=== PATIENT | female | born 1955 | race Caucasian/White ===

== ENCOUNTER 2020-06-18 05:47 | Outpatient (CLI) | payer SELFPAY ==
[~2020-06-18] VITALS: Ht 162 cm; Wt 68.0 kg
[2020-06-18] MEDS ORDERED: CITA20TA9 PO (14:14)
[2020-06-18] MEDS ORDERED: DONE5TAB30 PO (14:14)
[2020-06-18] MEDS ORDERED: LORA-404 PO (14:14)
[2020-06-18] MEDS ORDERED: MEMA10TA57 PO (14:14)
[2020-06-18] MEDS ORDERED: ASPI-999 PO (14:14)
[2020-06-18] MEDS ORDERED: FOLI0.4T2 PO (14:14)
== END 2020-06-18 14:53 | disposition home or self-care (01) ==
LOC: PREOP 05:47
PROVIDERS: ATTEND Specialist
DX: Z01.818 Encounter for other preprocedural examination (principal)

== ENCOUNTER 2020-06-20 09:51 | Day surgery (SDC) | payer BC, MEDICAID ==
[~2020-06-20] VITALS: Ht 162 cm; Wt 68.0 kg
[~2020-06-20 09:51] MED LIST: ASPI-999 PO; CITA20TA9 PO; DONE5TAB30 PO; FOLI0.4T2 PO; LORA-404 PO; MEMA10TA57 PO
[2020-06-20] MEDS: TETRACAINE 0.5% OPHTH SOLN 4 ML BTL (SINGLE DOSE ONLY) OU PRN ×4 (10:13→10:39)
[2020-06-20] MEDS ORDERED: TIMOLOL MALEATE 0.5% 5 ML (TIMOPTIC) BTL OU PRN (10:15)
[2020-06-20] MEDS ORDERED: MOXIFLOXACIN OPHTH SOLN 5 MG/ML 0.3 ML SYRINGE OP ONE (10:15)
[2020-06-20] MEDS ORDERED: POVIDONE (BETADINE) OPHTH SOLN 5% 30 ML OP ONE (10:15)
[2020-06-20] MEDS ORDERED: LIDOCAINE PF 1% 2 ML VIAL IR PRN (10:15)
[2020-06-20 10:16] VITALS: BP 115/57
[2020-06-20] MEDS: CYCLOPENTOLATE 1% (CYCLOGYL) 2 ML DROPS OP SCH ×3 (10:27→10:39)
[2020-06-20] MEDS: PHENYLEPHRINE 10% OPHTH (NEO-SYN) 5 ML BTL OU SCH ×3 (10:27→10:39)
--- NOTE | 2020-06-20 10:50 | Ophthalmologist Pre-Op Note ---
Pre-Operative Progress Note H&P Reviewed The H&P was reviewed, patient examined and no changes noted. Date H&P Reviewed: Jun 20, 2020 Time H&P Reviewed: 10:50 Pre-Op Dx Cataract, Right Eye REUBEN GARCIA MD Jun 20, 2020 10:50
[2020-06-20] MEDS ORDERED: MIDAZOLAM 2 MG/2 ML (VERSED) VIAL ONE (10:56)
--- NOTE | 2020-06-20 11:19 | Ophthalmology Operative Report ---
Cataract removal/placement IOL PREOPERATIVE DIAGNOSIS: Cataract Right Eye POSTOPERATIVE DIAGNOSIS: Cataract Right Eye PROCEDURE: Cataract removal and placement of posterior chamber implant, right eye SURGEON: Heath Garcia ANESTHESIA: Topical with sedation COMPLICATIONS: None ESTIMATED BLOOD LOSS: Minimal DESCRIPTION OF PROCEDURE: After proper informed consent was obtained, the patient, a 65 female, was taken to the Operating Room and the right eye was anesthetized with tetracaine. The right eye was then prepped and draped in the usual manner. A wire lid speculum was placed. A paracentesis was made at the left hand position. Preservative free lidocaine was injected into the anterior chamber followed by viscoelastic. A clear corneal incision was made in the temporal position. A capsulorrhexis was preformed and the central nuclear and cortical material were removed. The posterior capsule was polished and Tank 23.5 AU00T0 IOL was placed into the capsular bag. The residual viscoelastic was aspirated and balanced saline solution was injected into the anterior chamber. Moxifloxacin was injected into the anterior chamber. The wound was checked and found to be water tight. The patient tolerated the procedure well without complications. HEATH GARCIA MD Jun 20, 2020 11:19
[2020-06-20 11:30] VITALS: BP 153/88
[2020-06-20] MEDS ORDERED: acetaZOLAMIDE ER 500 MG CAP (DIAMOX SEQUELS) PO ONE (11:30)
--- NOTE | 2020-06-20 13:08 | Anesthesia-General Post-Op ---
MAC Patient Condition Mental Status/LOC: Same as Preop Cardiovascular: Satisfactory Nausea/Vomiting: Absent Respiratory: Satisfactory Pain: Controlled Complications: Absent Post Op Complications Complications None Follow Up Care/Instructions Patient Instructions None needed. Anesthesiology Discharge Order Discharge Order Patient is doing well, no complaints, stable vital signs, no apparent adverse anesthesia problems. No complications reported per nursing. JERILYN GAN CRNA Jun 20, 2020 13:08
== END 2020-06-20 11:30 | disposition home or self-care (01) ==
LOC: SDC 09:51
PROVIDERS: ATTEND Specialist
DX: H25.11 Age-related nuclear cataract, right eye (principal); F32.9 Major depressive disorder, single episode, unspecified; M19.90 Unspecified osteoarthritis, unspecified site; Z79.899 Other long term (current) drug therapy

== ENCOUNTER 2020-06-27 11:00 | Day surgery (SDC) | payer MEDICARE, MEDICAID ==
[~2020-06-27] VITALS: Ht 160 cm; Wt 68.2 kg
[2020-06-27] MEDS ORDERED: LIDOCAINE PF 1% 2 ML VIAL IR PRN (11:15)
[2020-06-27] MEDS ORDERED: MOXIFLOXACIN OPHTH SOLN 5 MG/ML 0.3 ML SYRINGE OP ONE (11:15)
[2020-06-27] MEDS ORDERED: TIMOLOL MALEATE 0.5% 5 ML (TIMOPTIC) BTL OU PRN (11:15)
[2020-06-27] MEDS ORDERED: POVIDONE (BETADINE) OPHTH SOLN 5% 30 ML OP ONE (11:15)
[2020-06-27] MEDS: TETRACAINE 0.5% OPHTH SOLN 4 ML BTL (SINGLE DOSE ONLY) OU PRN ×4 (11:17→11:35)
[2020-06-27] MEDS: PHENYLEPHRINE 10% OPHTH (NEO-SYN) 5 ML BTL OU SCH ×3 (11:24→11:35)
[2020-06-27] MEDS: CYCLOPENTOLATE 1% (CYCLOGYL) 2 ML DROPS OP SCH ×3 (11:24→11:35)
[2020-06-27 11:26] VITALS: BP 107/85
--- NOTE | 2020-06-27 11:45 | Ophthalmologist Pre-Op Note ---
Pre-Operative Progress Note H&P Reviewed The H&P was reviewed, patient examined and no changes noted. Date H&P Reviewed: Jun 27, 2020 Time H&P Reviewed: 11:45 Pre-Op Dx Cataract, Left Eye REUBEN GARCIA MD Jun 27, 2020 11:45
--- NOTE | 2020-06-27 12:06 | Ophthalmology Operative Report ---
Cataract removal/placement IOL PREOPERATIVE DIAGNOSIS: Cataract Left Eye POSTOPERATIVE DIAGNOSIS: Cataract Left Eye PROCEDURE: Cataract removal and placement of posterior chamber implant, left eye SURGEON: Heath Garcia ANESTHESIA: Topical with sedation COMPLICATIONS: None ESTIMATED BLOOD LOSS: Minimal DESCRIPTION OF PROCEDURE: After proper informed consent was obtained, the patient, a 65 female, was taken to the Operating Room and the left eye was anesthetized with tetracaine. The left eye was then prepped and draped in the usual manner. A wire lid speculum was placed. A paracentesis was made at the left hand position. Preservative free lidocaine was injected into the anterior chamber followed by viscoelastic. A clear corneal incision was made in the temporal position. A capsulorrhexis was preformed and the central nuclear and cortical material were removed. The posterior capsule was polished and an Tank 23.5 AU00T0 was placed into the capsular bag. The residual viscoelastic was aspirated and balanced saline solution was injected into the anterior chamber. Moxifloxacin was injected into the anterior chamber. The wound was checked and found to be water tight. The patient tolerated the procedure well without complications. HEATH GARCIA MD Jun 27, 2020 12:06
[2020-06-27 12:14] VITALS: BP 112/78
[2020-06-27] MEDS ORDERED: acetaZOLAMIDE ER 500 MG CAP (DIAMOX SEQUELS) PO ONE (12:30)
--- NOTE | 2020-06-27 14:28 | Anesthesia-General Post-Op ---
MAC Patient Condition Mental Status/LOC: Same as Preop Cardiovascular: Satisfactory Nausea/Vomiting: Absent Respiratory: Satisfactory Pain: Controlled Complications: Absent Post Op Complications Complications None Follow Up Care/Instructions Patient Instructions None needed. Anesthesiology Discharge Order Discharge Order Patient was seen this morning after the procedure and she was doing well, no complaints, stable vital signs, no apparent adverse anesthesia problems. NADIA ROJAS DO Jun 27, 2020 14:28
== END 2020-06-27 12:17 ==
LOC: SDC 11:00
PROVIDERS: ATTEND Specialist
DX: H25.12 Age-related nuclear cataract, left eye (principal); F32.9 Major depressive disorder, single episode, unspecified; F03.90 Unspecified dementia, unspecified severity, without behavioral disturbance, psychotic disturbance, mood disturbance, and anxiety; F17.210 Nicotine dependence, cigarettes, uncomplicated; Z79.899 Other long term (current) drug therapy
CPT/HCPCS: 66984; V2632

== ENCOUNTER 2023-06-07 05:39 | Outpatient (CLI) | payer MEDICARE, MEDICAID ==
[~2023-06-07] VITALS: Ht 162.6 cm; Wt 76.8 kg
[~2023-06-07 05:39] MED LIST changes: -FOLI0.4T2 PO; +FOLI0.4T6 PO
[2023-06-07] MEDS ORDERED: CHOL400T3 PO (14:10)
[2023-06-07] MEDS ORDERED: MIRT7.5T8 PO (14:10)
[2023-06-07] MEDS ORDERED: VENL150C98 PO (14:10)
[2023-06-07] MEDS ORDERED: POTA99CA PO (14:10)
[2023-06-07] MEDS ORDERED: MEMA10TA57 PO (14:10)
[2023-06-07] MEDS ORDERED: CYAN1TAB26 PO (14:10)
[2023-06-07] MEDS ORDERED: CYCL1DRO OP (14:10)
== END 2023-06-07 14:15 | disposition home or self-care (01) ==
LOC: PREOP 05:39
PROVIDERS: ATTEND Obstetrics & Gynecology
DX: Z01.818 Encounter for other preprocedural examination (principal)

== ENCOUNTER 2023-06-13 10:30 | Day surgery (SDC) | payer MEDICARE, MEDICAID ==
[2023-06-13] VITALS (13 sets, daily range): BP systolic 100–125; BP diastolic 60–83
[~2023-06-13] VITALS: Ht 162.6 cm; Wt 76.8 kg
[~2023-06-13 10:30] MED LIST changes: +CHOL400T3 PO; +CYAN1TAB26 PO; +CYCL1DRO OP; +MIRT7.5T8 PO; +POTA99CA PO; +VENL150C98 PO
[2023-06-13] MEDS ORDERED: ceFAZolin INJECTION 2,000 MG in NS (IVPB) 50 ML 50 ML IV ONE (11:00)
[2023-06-13] MEDS: LACTATED RINGERS 1,000 ML 1,000 ML IV PRN ×2 (11:00→13:13)
[2023-06-13] MEDS ORDERED: ONDANSETRON INJECTION 4 MG/2 ML (SDV) ONE (11:11)
[2023-06-13] MEDS ORDERED: LIDOCAINE PF 2% 5 ML VIAL ONE (11:11)
[2023-06-13] MEDS ORDERED: dexAMETHasone INJ 10 MG/ML 1 ML VIAL ONE (11:11)
[2023-06-13] MEDS ORDERED: SEVOFLURANE (ULTANE) 15 ML INHAL SOLN ONE (11:11)
[2023-06-13] MEDS ORDERED: fentaNYL INJECTION 100 MCG/2 ML VIAL ONE (11:11)
[2023-06-13] MEDS ORDERED: proPOfol INJECTION 200 MG/20 ML VIAL IV ONE (11:11)
[2023-06-13] MEDS ORDERED: MIDAZOLAM INJ 2 MG/2 ML VIAL ONE (11:12)
[2023-06-13] MEDS ORDERED: LIDOCAINE/EPI 1%-1:200,000 (XYLOCAINE) 30 ML VIAL ONE (11:28)
--- NOTE | 2023-06-13 11:36 | Progress Note-Pre Operative ---
Pre-Operative Progress Note Date H&P Reviewed: Jun 13, 2023 Time H&P Reviewed: 11:35 History & Physical: H&P Reviewed, Patient Examed, No changes noted Changes from last HP excision of condyloma near anus Pre-Operative Diagnosis: excision of condyloma near anus all other indicated procedures NEREIDA VILLAVICENCIO DO Jun 13, 2023 11:36
--- NOTE | 2023-06-13 11:37 | Progress Note-Pre Operative ---
Pre-Operative Progress Note Date H&P Reviewed: Jun 13, 2023 Time H&P Reviewed: 11:35 History & Physical: H&P Reviewed, Patient Examed, No changes noted Pre-Operative Diagnosis: Condyloma Accuminata Plan for wide local excision DEYVI GARCIA DO Jun 13, 2023 11:37
[2023-06-13] MEDS ORDERED: LIDOCAINE/EPI 1%-1:200,000 (XYLOCAINE) 30 ML VIAL INJ ONE (12:21)
[2023-06-13] MEDS ORDERED: MUPIROCIN 2% OINTMENT 22 GM TUBE ONE (12:26)
[2023-06-13] MEDS ORDERED: CEPH500T PO (12:50)
[2023-06-13] MEDS ORDERED: OXYC1TAB87 PO (12:50)
[2023-06-13] MEDS ORDERED: IBUP-1773 PO (12:50)
[2023-06-13] MEDS ORDERED: MUPIROCIN 2% OINTMENT 22 GM TUBE TOP ONE (12:51)
[2023-06-13] MEDS ORDERED: ESMOLOL INJ 100 MG/10 ML VIAL ONE (12:53)
--- NOTE | 2023-06-13 12:53 | Discharge Inst-Simple/Standard ---
Discharge Inst-Standard Reconcile Patient Problems Problems Reviewed?: Yes Discharge Medications New, Converted or Re-Newed RX: Transmitted to Pharmacy Patient Instructions/Follow Up Plan of Care/Instructions/FU: Keep area clean and dry continue to use bactroban after each toilet use. F/u On 06/16/23 Activity as Tolerated: Yes Discharge Diet: Regular Diet Return to The Hospital For: increased pain, temperature or bleeding. DEYVI GARCIA DO Jun 13, 2023 12:52
[2023-06-13] MEDS ORDERED: BACI28.431 TP (12:54)
--- NOTE | 2023-06-13 13:01 | OB/GYN Operative Report ---
Operative Report Date of Procedure:Jun 13, 2023 Preoperative Diagnosis: Condyloma acuminata on the left vulva perianal area Postoperative Diagnosis:Same Name of the Procedure: Excision of condyloma acuminata with fulguration Surgeon: Deyvi Garcia DO Concurrent with Dr. Edwards Training And Quality Manager(s): [none] Anesthesia:General LMA Indications for Procedure:Condyloma acuminata of the left vulva and perianal area] Findings of the Procedure: Large 3 x 4 cm condyloma acuminata on the left vulva extending to the perineal and perianal area Complications: None Disposition:Counts correct x2 patient stable to PACU Description of procedure: Informed consent was obtained and signed patient was taken to OR [facility]. 1 placed under general LMA anesthesia placed in the dorsolithotomy position prepped and draped usual sterile fashion. A timeout was performed. Dr. Edwards was present in the room and after examining the patient it was decided to do an excision of the condyloma on the perianal to perineal area. Dr. Edwards was going to do this section of the procedure. She also had a 3 x 4 cm lesion on the left labia majora that extended into the labia minora. The labia minora lesion was flat so it was decided to fulgurate that and excise the labia majora lesion. Dr. Edwards dictated his portion of the procedure and once that was done we then injected the area with 1% lidocaine with epi. Using a 15 blade scalpel we made an excision around the condyloma acuminata and removed it with a Bovie cautery. Once this was removed and was sent to pathology for further analysis. The flat areas of condyloma were fulgurated using the Bovie cautery. The subcutaneous layer was cauterized for hemostasis and then reapproximated using 2-0 Vicryl in a running fashion for 2 layers. The skin was reapproximate using 3-0 Vicryl in a running fashion. The area was then covered with Bactroban and the patient was taken out of the [facility] and taken to PACU in stable condition. The condyloma lesion was sent to pathology along with Dr. Edwards's biopsy for further analysis. All my counts were correct x2 the estimated blood loss was minimal fluids were 900 cc. DEYVI GARCIA DO Jun 13, 2023 13:01
--- NOTE | 2023-06-13 14:10 | Anesthesia-General Post-Op ---
General Patient Condition Mental Status/LOC: Same as Preop Cardiovascular: Satisfactory Nausea/Vomiting: Absent Respiratory: Satisfactory Pain: Controlled Complications: Absent Post Op Complications Complications None Follow Up Care/Instructions Patient Instructions None needed. Anesthesia/Patient Condition Patient Condition Patient is doing well, no complaints, stable vital signs, no apparent adverse anesthesia problems. No complications reported per nursing. BETH GONCALVES CRNA Jun 13, 2023 14:10
[2023-06-13] MEDS ORDERED: ESMOLOL INJ 100 MG/10 ML VIAL IV ONE (14:15)
[2023-06-13] MEDS ORDERED: fentaNYL INJECTION 100 MCG/2 ML VIAL IVP ONE (14:15)
--- NOTE | 2023-06-14 18:30 | OPERATIVE REPORT ---
DATE OF SERVICE: 06/13/2023 PREOPERATIVE DIAGNOSIS: Perianal lesion. POSTOPERATIVE DIAGNOSIS: Perianal lesion. PROCEDURE: Excision of perianal lesion 2.5 x 1.3 cm. SURGEON: Nereida Edwards DO ANESTHESIA: General. ESTIMATED BLOOD LOSS: Minimal. COMPLICATIONS: None. INDICATIONS: The patient is a 68-year-old female with perianal lesion also, left vulvar lesion which Dr. Gabriel is taking care of. The patient and family understand risks and benefits of procedure and wishes to proceed. Consent was signed in chart. DESCRIPTION OF PROCEDURE: The patient was taken to the operating suite, prepped and draped in lithotomy position. Timeout was performed. Local anesthetic was infiltrated and pudendal block was placed bilaterally. A #15 blade scalpel was used to make an elliptical incision around the perianal lesion. Skin and subcutaneous tissue was removed. Measurement was 2.5 x 1.3 cm of skin and subcutaneous tissue were removed. The skin was then closed in a running fashion using 2-0 Vicryl. There were some area of flat appearing condyloma, which was also fulgurated with cautery. At this time, the surgery was turned back to Dr. Gabriel for her portion of the case. Please see her dictation. Job ID: [id number] DocumentID: [id number] Dictated Date: 06/14/2023 09:40:53 General Utility Maintenance Repairer Date: 06/14/2023 18:28:00 Dictated By: NEREIDA EDWARDS DO
== END 2023-06-13 15:25 | disposition home or self-care (01) ==
LOC: SDC 10:30
PROVIDERS: ATTEND Obstetrics & Gynecology
DX: A63.0 Anogenital (venereal) warts (principal); F17.210 Nicotine dependence, cigarettes, uncomplicated
CPT/HCPCS: 87081; 93005